=== PATIENT | male | born 1965 | race Caucasian/White ===

== ENCOUNTER 2018-10-16 10:02 | Emergency (ER) | payer BC ==
[~2018-10-16] VITALS: Ht 177.8 cm; Wt 68.9 kg
[2018-10-16 10:19] VITALS: Ht 177.8 cm; Wt 68.9 kg
[2018-10-16 11:41] VITALS: BP 121/72
== END 2018-10-16 11:41 | disposition home or self-care (01) ==
LOC: ED 10:02
DX: H10.12 Acute atopic conjunctivitis, left eye (principal); H11.002 Unspecified pterygium of left eye; Z98.890 Other specified postprocedural states